=== PATIENT | male | born 1955 | race Caucasian/White ===

== ENCOUNTER 2018-06-08 12:56 | Day surgery (SDC) | END 2018-06-08 16:48 | disposition home or self-care (01) ==

== ENCOUNTER 2018-08-30 13:26 | Observation (INO) | END 2018-08-31 10:21 | disposition home or self-care (01) ==

== ENCOUNTER 2018-08-31 17:33 | Emergency (ER) | END 2018-08-31 21:25 | disposition home or self-care (01) ==